=== PATIENT | female | born 1940 | race Hispanic/Latino ===

== ENCOUNTER 2018-01-11 10:17 | Outpatient (CLI) | payer OTHER | END 2018-01-11 10:18 | disposition home or self-care (01) | LOC: BICMAMMO 10:17 | DX: Z13.820 Encounter for screening for osteoporosis (principal) | CPT/HCPCS: 77080 ==

== ENCOUNTER 2020-10-11 13:50 | Outpatient (CLI) | payer OTHER | END 2020-10-11 13:51 | disposition home or self-care (01) | LOC: BICRAD 13:50 | DX: R07.81 Pleurodynia (principal) ==

== ENCOUNTER 2022-09-15 08:08 | Outpatient (CLI) | payer OTHER | END 2022-09-15 08:09 | disposition home or self-care (01) | LOC: BICMAMMO 08:08 | DX: Z13.820 Encounter for screening for osteoporosis (principal); M81.0 Age-related osteoporosis without current pathological fracture | CPT/HCPCS: 77080 ==

== ENCOUNTER 2025-06-05 09:48 | Outpatient (CLI) | payer OTHER | END 2025-06-05 09:49 | disposition home or self-care (01) | LOC: BICMAMMO 09:48 | PROVIDERS: ATTEND Internal Medicine Rheumatology | DX: M81.0 Age-related osteoporosis without current pathological fracture (principal) | CPT/HCPCS: 77080 ==